=== PATIENT | female | born 1975 | race Caucasian/White ===

== ENCOUNTER 2017-05-13 13:03 | Inpatient (IN) | payer BC ==
[2017-05-13 15:39] LABS: WHITE BLOOD COUNT 4.5 10^3/ul (4.8-10.8)
[2017-05-13 15:39] LABS: ABNORMAL IP MESSAGE 1; MEAN CORPUSCULAR HEMOGLOBIN 14.9 pg (29.0-33.0); MEAN CORPUSCULAR HGB CONC 24.1 g/dl (32.0-37.0); MEAN CORPUSCULAR VOLUME 61.8 fl (82.0-101.0); NUCLEATED RED BLOOD CELLS% 1.3 /100WBC (0.0-0.0); PLATELET COUNT 177 10^3/UL (140-415); RED BLOOD COUNT 2.75 10^6/ul (4.20-5.40); RED CELL DISTRIBUTION WIDTH 25.3 % (11.5-14.5)
[2017-05-13 15:47] LABS: INR 1.09; PROTIME 14.2 Sec (11.9-14.9); PT RATIO 1.1
[2017-05-13 15:48] LABS: PARTIAL THROMBOPLASTIN TIME 33.8 Sec (25.0-35.0)
[2017-05-13 15:51] LABS: ANION GAP 17 (8-16); BLOOD UREA NITROGEN 8 mg/dl (7-20); CARBON DIOXIDE 26 mmol/L (21-31); CHLORIDE 100 mmol/L (97-110); GLUCOSE 93 mg/dl (70-220); HEMOGLOBIN 4.1 g/dl (12.0-16.0); POSITIVE DIFF @See below; POTASSIUM 3.8 mmol/L (3.5-5.1); SODIUM 139 mmol/L (135-144)
[2017-05-13 15:52] LABS: ADD MAN DIFF? YES; PATH REVIEW? YES
[2017-05-13] MEDS ORDERED: SOD CHLORIDE 0.9% 250 ML IV (15:52)
[2017-05-13] MEDS ORDERED: ACETAMINOPHEN 325 MG TAB PO ×2 (16:00→17:00)
[2017-05-13] MEDS ORDERED: ONDANSETRON 4 MG INJ IV (16:00)
[2017-05-13 16:28] LABS: ANISOCYTOSIS 1+ (0-0); EOSINOPHILS % (M) 1 % (0-7); ERYTHROBLAST% (NRBC) (M) 2 % (0-0); GIANT THROMBO% (M) 1 % (0-0); HYPOCHROMASIA 3+ (0-0); LYMPHOCYTES #M 1.2 10^3/ul (0.8-2.9); LYMPHOCYTES % (M) 27 % (15-51); METAMYELOCYTES %M 1 % (0-0); MICROCYTOSIS 1+ (0-0); MONOCYTES % (M) 1 % (0-11); MYELOCYTES % (M) 1 % (0-0); PLATELET ESTIMATE NORMAL; POIKILOCYTOSIS 1+ (0-0); POLYCHROMASIA 1+ (0-0); SEGMENTED NEUTROPHILS (M) % 69 % (39-77); SMUDGE%M 1 % (0-0)
[2017-05-13] MEDS ORDERED: NACL 0.9% 3 ML SYG IV (17:00)
[2017-05-13] MEDS ORDERED: MAGNESIUM HYDROXIDE 30ML CUP PO (17:00)
[2017-05-13] MEDS ORDERED: DOCUSATE SODIUM 100 MG CAP PO (17:00)
[2017-05-13 17:44] LABS: ALBUMIN 4.2 g/dl (3.3-4.9)
[2017-05-13 17:57] LABS: TOTAL IRON BINDING CAPACITY 473 ug/dl (241-421)
[2017-05-13 17:58] LABS: IRON < 10 ug/dl (35-150)
[2017-05-13 20:30] LABS: FREE T3 1.67 pg/ml (2.77-5.27); FREE T4 (FREE THYROXINE) 0.33 ng/dl (0.64-1.79)
[2017-05-14 07:06] LABS: ADD UMIC NO; UR ASCORBIC ACID 40 mg/dL (NEGATIVE); UR BILIRUBIN (Dip) NEGATIVE (NEGATIVE); UR BLOOD (Dip) NEGATIVE (NEGATIVE); UR CLARITY CLEAR (CLEAR); UR COLOR YELLOW (YELLOW); UR GLUCOSE (Dip) NEGATIVE (NEGATIVE); UR KETONES (Dip) NEGATIVE (NEGATIVE); UR LEUKOCYTE ESTERASE (Dip) NEGATIVE Leu/ul (NEGATIVE); UR NITRITE (Dip) NEGATIVE (NEGATIVE); UR SPECIFIC GRAVITY (Dip) 1.026 (1.003-1.030); UR TOTAL PROTEIN (Dip) NEGATIVE (NEGATIVE); UR UROBILINOGEN (Dip) 1+ mg/dL (NEGATIVE)
[2017-05-14 09:17] LABS: ABNORMAL IP MESSAGE 1; HEMATOCRIT 24.1 % (37.0-47.0); MEAN CORPUSCULAR HGB CONC 28.2 g/dl (32.0-37.0); MEAN CORPUSCULAR VOLUME 70.9 fl (82.0-101.0); NUCLEATED RED BLOOD CELLS% 1.9 /100WBC (0.0-0.0); PLATELET COUNT 165 10^3/UL (140-415); RED CELL DISTRIBUTION WIDTH 30.2 % (11.5-14.5)
[2017-05-14 09:17] LABS: WHITE BLOOD COUNT 5.2 10^3/ul (4.8-10.8)
[2017-05-14 09:21] LABS: POSITIVE DIFF @See below
[2017-05-14 09:24] LABS: ADD MAN DIFF? YES; HEMOGLOBIN 6.8 g/dl (12.0-16.0)
[2017-05-14] MEDS ORDERED: SOD CHLORIDE 0.9% 250 ML IV* (10:01)
[2017-05-14 10:22] LABS: ANISOCYTOSIS 3+ (0-0); BAND NEUTROPHILS #M 0.2 10^3/ul (0.0-0.6); BAND NEUTROPHILS % (M) 4 % (0-4); BASOPHILS % (M) 1 % (0-2); EOSINOPHILS % (M) 4 % (0-7); ERYTHROBLAST% (NRBC) (M) 1 % (0-0); HYPOCHROMASIA 3+ (0-0); LYMPHOCYTES #M 1.5 10^3/ul (0.8-2.9); LYMPHOCYTES % (M) 29 % (15-51); MICROCYTOSIS 3+ (0-0); MONOCYTE #M 0.1 10^3/ul (0.3-0.9); MONOCYTES % (M) 2 % (0-11); PLATELET ESTIMATE NORMAL; POIKILOCYTOSIS 3+ (0-0); POLYCHROMASIA 2+ (0-0); SEG NEUT #M 3.1 10^3/ul (1.7-7.5); SEGMENTED NEUTROPHILS (M) % 60 % (39-77)
[2017-05-14] MEDS: FERROUS SULFATE (EC) 325 MG TAB PO ×2 (12:25→21:05)
[2017-05-14] MEDS: DOCUSATE SODIUM 100 MG CAP PO (12:25)
[2017-05-14] MEDS: LEVOTHYROXINE 125 MCG TAB PO (15:21)
[2017-05-14 20:19] LABS: ADD MAN DIFF? NO
[2017-05-14 20:24] LABS: ABNORMAL IP MESSAGE 1; BASOPHILS % 0.6 % (0.0-2.0); EOSINOPHILS # 0.1 10^3/ul (0.0-0.5); HEMATOCRIT 27.3 % (37.0-47.0); HEMOGLOBIN 7.8 g/dl (12.0-16.0); LYMPHOCYTES # 1.8 10^3/ul (0.8-2.9); LYMPHOCYTES % 28.7 % (15.0-51.0); MEAN CORPUSCULAR HEMOGLOBIN 20.5 pg (29.0-33.0); MEAN CORPUSCULAR HGB CONC 28.6 g/dl (32.0-37.0); MEAN CORPUSCULAR VOLUME 71.8 fl (82.0-101.0); MONOCYTE # 0.3 10^3/ul (0.3-0.9); MONOCYTES % 3.9 % (0.0-11.0); NEUTROPHIL # 3.9 10^3/ul (1.6-7.5); NEUTROPHILS % 61.2 % (39.0-77.0); NUCLEATED RED BLOOD CELLS # 0.2 10^3/ul (0.0-0.0); NUCLEATED RED BLOOD CELLS% 2.7 /100WBC (0.0-0.0); PLATELET COUNT 185 10^3/UL (140-415); RED CELL DISTRIBUTION WIDTH 29.6 % (11.5-14.5)
[2017-05-14 20:24] LABS: WHITE BLOOD COUNT 6.4 10^3/ul (4.8-10.8)
[2017-05-14 20:27] LABS: POSITIVE DIFF @See below
[2017-05-14 22:36] LABS: IMMEDIATE SPIN CROSSMATCH 1
[2017-05-15] MEDS: HYDROCODONE/APAP (5/325) TAB PO (02:30)
[2017-05-15 02:53] LABS: IMMEDIATE SPIN CROSSMATCH 1 5
[2017-05-15] MEDS: LEVOTHYROXINE 125 MCG TAB PO (06:19)
[2017-05-15 08:54] LABS: ADD MAN DIFF? NO
[2017-05-15] MEDS: FERROUS SULFATE (EC) 325 MG TAB PO ×3 (09:00→21:06)
[2017-05-15] MEDS: DOCUSATE SODIUM 100 MG CAP PO (09:00)
[2017-05-15 09:05] LABS: WHITE BLOOD COUNT 7.2 10^3/ul (4.8-10.8)
[2017-05-15 09:05] LABS: ABNORMAL IP MESSAGE 1; BASOPHIL # 0.1 10^3/ul (0.0-0.1); BASOPHILS % 1.1 % (0.0-2.0); EOSINOPHILS # 0.2 10^3/ul (0.0-0.5); EOSINOPHILS % 2.5 % (0.0-7.0); HEMATOCRIT 29.5 % (37.0-47.0); HEMOGLOBIN 8.6 g/dl (12.0-16.0); LYMPHOCYTES # 2.1 10^3/ul (0.8-2.9); LYMPHOCYTES % 29.6 % (15.0-51.0); MEAN CORPUSCULAR HEMOGLOBIN 21.4 pg (29.0-33.0); MEAN CORPUSCULAR HGB CONC 29.2 g/dl (32.0-37.0); MEAN CORPUSCULAR VOLUME 73.6 fl (82.0-101.0); MONOCYTE # 0.3 10^3/ul (0.3-0.9); MONOCYTES % 4.3 % (0.0-11.0); NEUTROPHIL # 4.2 10^3/ul (1.6-7.5); NEUTROPHILS % 58.4 % (39.0-77.0); NUCLEATED RED BLOOD CELLS # 0.2 10^3/ul (0.0-0.0); NUCLEATED RED BLOOD CELLS% 2.8 /100WBC (0.0-0.0); PLATELET COUNT 173 10^3/UL (140-415); RED BLOOD COUNT 4.01 10^6/ul (4.20-5.40); RED CELL DISTRIBUTION WIDTH 29.9 % (11.5-14.5)
[2017-05-15] MEDS ORDERED: NEOSTIGMINE 3 MG/3 ML SYRINGE (11:27)
[2017-05-15] MEDS ORDERED: GLYCOPYRROLATE 0.4 MG INJ (11:27)
[2017-05-15] MEDS ORDERED: CEFAZOLIN 1 GM INJ (11:27)
[2017-05-15] MEDS ORDERED: ROCURONIUM 50 MG INJ (11:27)
[2017-05-15] MEDS ORDERED: PROPOFOL 20 ML (11:27)
[2017-05-15] MEDS ORDERED: FENTAnyl 50 MCG/ML VIAL (11:29)
[2017-05-15] MEDS ORDERED: DEXAMETHASONE 4 MG/ML 1 ML INJ (11:29)
[2017-05-15] MEDS ORDERED: ONDANSETRON 4 MG INJ (11:29)
[2017-05-15] MEDS ORDERED: MIDAZOLAM 1 MG/ML 2 ML INJ (11:29)
[2017-05-15] MEDS ORDERED: ONDANSETRON 4 MG INJ IV (12:00)
[2017-05-15] MEDS ORDERED: LABETALOL HCL 20MG INJ IV (12:00)
[2017-05-15] MEDS ORDERED: HYDROmorphONE (0.2 MG/ML) 10ML SYG IV ×2 (12:00)
[2017-05-15] MEDS ORDERED: OXYCODONE/ACETAMINOPHEN (5/325) TAB PO ×2 (12:00)
[2017-05-15] MEDS ORDERED: FENTAnyl 50 MCG/ML VIAL IV ×3 (12:00)
[2017-05-15] MEDS ORDERED: TRIMETHOBENZAMIDE 100 MG/ML VIAL IM (12:00)
[2017-05-15] MEDS ORDERED: ALBUTEROL 0.083% (NEB) 2.5 MG/3 ML AMP HHN (12:00)
[2017-05-15] MEDS ORDERED: MEPERIDINE 25 MG INJ IV (12:00)
[2017-05-15] MEDS ORDERED: MIDAZOLAM 1 MG/ML 2 ML INJ IV (12:00)
[2017-05-15] MEDS ORDERED: hydrALAzine 20 MG INJ IV (12:00)
[2017-05-15] MEDS ORDERED: DIPHENHYDRAMINE 50 MG INJ IV (12:00)
[2017-05-15] MEDS ORDERED: EPHEDrine SULFATE 50 MG/5 ML SYG IV (12:00)
[2017-05-15] MEDS ORDERED: IPRATROPIUM (NEB) 0.5 MG/2.5 ML AMP HHN (12:00)
[2017-05-15] MEDS ORDERED: SUGAMMADEX SODIUM 200 MG/2 ML VIAL IV (12:49)
[2017-05-15] MEDS: HYDROmorphONE (0.2 MG/ML) 10ML SYG IV ×2 (13:09→13:33)
[2017-05-16 05:07] LABS: ADD MAN DIFF? NO
[2017-05-16 05:10] LABS: WHITE BLOOD COUNT 11.4 10^3/ul (4.8-10.8)
[2017-05-16 05:10] LABS: ABNORMAL IP MESSAGE 1; BASOPHIL # 0.1 10^3/ul (0.0-0.1); BASOPHILS % 0.4 % (0.0-2.0); EOSINOPHILS % 0.1 % (0.0-7.0); HEMATOCRIT 29.2 % (37.0-47.0); HEMOGLOBIN 8.5 g/dl (12.0-16.0); LYMPHOCYTES # 1.8 10^3/ul (0.8-2.9); LYMPHOCYTES % 15.5 % (15.0-51.0); MEAN CORPUSCULAR HEMOGLOBIN 21.6 pg (29.0-33.0); MEAN CORPUSCULAR HGB CONC 29.1 g/dl (32.0-37.0); MEAN CORPUSCULAR VOLUME 74.1 fl (82.0-101.0); MONOCYTE # 0.4 10^3/ul (0.3-0.9); MONOCYTES % 3.2 % (0.0-11.0); NEUTROPHIL # 8.9 10^3/ul (1.6-7.5); NEUTROPHILS % 78.3 % (39.0-77.0); NUCLEATED RED BLOOD CELLS # 0.2 10^3/ul (0.0-0.0); NUCLEATED RED BLOOD CELLS% 1.8 /100WBC (0.0-0.0); PLATELET COUNT 206 10^3/UL (140-415); RED BLOOD COUNT 3.94 10^6/ul (4.20-5.40)
[2017-05-16 05:29] LABS: POSITIVE DIFF @See below; RED CELL DISTRIBUTION WIDTH 30.7 % (11.5-14.5)
[2017-05-16] MEDS: LEVOTHYROXINE 125 MCG TAB PO (06:14)
[2017-05-16] MEDS: DOCUSATE SODIUM 100 MG CAP PO (09:41)
[2017-05-16] MEDS: FERROUS SULFATE (EC) 325 MG TAB PO (09:41)
== END 2017-05-16 11:13 | disposition home or self-care (01) | DRG 742 ==
LOC: E/R 13:03 → PP2 16:00
PROC: 0U5B8ZZ Destruction of Endometrium, Via Natural or Artificial Opening Endoscopic (ICD-10-PCS; principal; 2017-05-15 11:37)
PROC: 0UDB8ZZ Extraction of Endometrium, Via Natural or Artificial Opening Endoscopic (ICD-10-PCS; 2017-05-15 11:37)
PROC: 30233K1 Transfusion of Nonautologous Frozen Plasma into Peripheral Vein, Percutaneous Approach (ICD-10-PCS; 2017-05-15 11:37)
PROC: 30233N1 Transfusion of Nonautologous Red Blood Cells into Peripheral Vein, Percutaneous Approach (ICD-10-PCS; 2017-05-15 11:37)
DX: N92.0 Excessive and frequent menstruation with regular cycle (principal); D62 Acute posthemorrhagic anemia; D50.8 Other iron deficiency anemias; J02.9 Acute pharyngitis, unspecified; M79.89 Other specified soft tissue disorders; E89.0 Postprocedural hypothyroidism
CPT/HCPCS: 36415; 36430; 76830; 76856; 80048; 81003; 82040; 83540; 84439; 84443; 84481; 85025; 85610; 85730; 86850; 86900; 86901; 86920; 87430; 87880; 88305; 99285-25

== ENCOUNTER 2018-12-13 12:12 | Inpatient (IN) | payer BC ==
[2018-12-13] MEDS: SOD CHLORIDE 0.9% 0 ML IV (02:00)
[2018-12-13 14:17] LABS: WHITE BLOOD COUNT 6.2 10^3/ul (4.8-10.8)
[2018-12-13 14:17] LABS: ABNORMAL IP MESSAGE 1; HEMATOCRIT 18.6 % (37.0-47.0); MEAN CORPUSCULAR HEMOGLOBIN 14.5 pg (29.0-33.0); MEAN CORPUSCULAR HGB CONC 23.7 g/dl (32.0-37.0); MEAN CORPUSCULAR VOLUME 61.2 fl (82.0-101.0); NUCLEATED RED BLOOD CELLS% 1.1 /100WBC (0.0-0.0); PLATELET COUNT 208 10^3/UL (140-415); RED BLOOD COUNT 3.04 10^6/ul (4.20-5.40)
[2018-12-13 14:30] LABS: HEMOGLOBIN 4.4 g/dl (12.0-16.0)
[2018-12-13 14:31] LABS: ADD MAN DIFF? YES; POSITIVE DIFF @See below
[2018-12-13 14:32] LABS: PATH REVIEW? YES
[2018-12-13 14:33] LABS: ALANINE AMINOTRANSFERASE 16 IU/L (13-69); ALBUMIN 4.5 g/dl (3.3-4.9); ALBUMIN/GLOBULIN RATIO 1.21; ALKALINE PHOSPHATASE 60 IU/L (42-121); ANION GAP 9 (5-13); ASPARTATE AMINO TRANSFERASE 16 IU/L (15-46); BILIRUBIN,INDIRECT 0.5 mg/dl (0-1.1); BILIRUBIN,TOTAL 0.5 mg/dl (0.2-1.3); BLOOD UREA NITROGEN 8 mg/dl (7-20); CALCIUM 8.8 mg/dl (8.4-10.2); CARBON DIOXIDE 28 mmol/L (21-31); CHLORIDE 101 mmol/L (97-110); CREATININE 0.66 mg/dl (0.44-1.00); Estimated GFR > 60 mL/min (>60); GLUCOSE 101 mg/dl (70-220); POTASSIUM 3.8 mmol/L (3.5-5.1); SODIUM 138 mmol/L (135-144); TOTAL PROTEIN 8.2 g/dl (6.1-8.1)
[2018-12-13 14:41] LABS: INR 1.11; PROTIME 14.4 Sec (11.9-14.9); PT RATIO 1.1
[2018-12-13 14:42] LABS: PARTIAL THROMBOPLASTIN TIME 33.9 Sec (23.0-35.0)
[2018-12-13 14:45] LABS: TROPONIN-I < 0.012 ng/ml (0.000-0.120)
[2018-12-13] MEDS ORDERED: ACETAMINOPHEN 325 MG TAB PO ×2 (15:00→15:30)
[2018-12-13] MEDS ORDERED: ONDANSETRON 4 MG INJ IV ×2 (15:00→15:30)
[2018-12-13] MEDS ORDERED: MAGNESIUM HYDROXIDE 30ML CUP PO (15:30)
[2018-12-13] MEDS ORDERED: NACL 0.9% 3 ML SYG IV (15:30)
[2018-12-13] MEDS ORDERED: morphine 2 MG INJ IV (15:30)
[2018-12-13 15:58] LABS: % IRON SATURATION 5 % SAT (22-52); IRON 26 ug/dl (35-150); TOTAL IRON BINDING CAPACITY 556 ug/dl (241-421)
[2018-12-13 16:22] LABS: ANISOCYTOSIS 3+ (0-0); BASOPHILS % (M) 1 % (0-2); EOSINOPHILS % (M) 3 % (0-7); ERYTHROBLAST% (NRBC) (M) 2 % (0-0); GIANT THROMBO% (M) 5 % (0-0); HYPOCHROMASIA 3+ (0-0); LYMPHOCYTES #M 0.7 10^3/ul (0.8-2.9); LYMPHOCYTES % (M) 12 % (15-51); MICROCYTOSIS 3+ (0-0); MONOCYTE #M 0.1 10^3/ul (0.3-0.9); MONOCYTES % (M) 2 % (0-11); OVALOCYTES 2+ (0-0); PLATELET ESTIMATE NORMAL; POIKILOCYTOSIS 3+ (0-0); POLYCHROMASIA 2+ (0-0); SCHISTOCYTES 1+ (0-0); SEGMENTED NEUTROPHILS (M) % 82 % (39-77); SMUDGE%M 4 % (0-0); TEAR DROP CELLS 1+ (0-0)
[2018-12-13 21:33] LABS: IMMEDIATE SPIN CROSSMATCH 1 4
[2018-12-14] MEDS: PANTOPRAZOLE (EC) 40 MG TAB PO (05:37)
[2018-12-14] MEDS: LEVOTHYROXINE 125 MCG TAB PO (05:37)
[2018-12-14 08:22] LABS: ADD MAN DIFF? NO
[2018-12-14 08:31] LABS: ABNORMAL IP MESSAGE 1; BASOPHIL # 0.1 10^3/ul (0.0-0.1); BASOPHILS % 0.7 % (0.0-2.0); EOSINOPHILS # 0.2 10^3/ul (0.0-0.5); HEMATOCRIT 28.9 % (37.0-47.0); HEMOGLOBIN 8.2 g/dl (12.0-16.0); LYMPHOCYTES # 1.5 10^3/ul (0.8-2.9); LYMPHOCYTES % 20.2 % (15.0-51.0); MEAN CORPUSCULAR HEMOGLOBIN 19.7 pg (29.0-33.0); MEAN CORPUSCULAR HGB CONC 28.4 g/dl (32.0-37.0); MEAN CORPUSCULAR VOLUME 69.5 fl (82.0-101.0); MONOCYTE # 0.3 10^3/ul (0.3-0.9); MONOCYTES % 3.9 % (0.0-11.0); NEUTROPHIL # 5.4 10^3/ul (1.6-7.5); NEUTROPHILS % 72.7 % (39.0-77.0); NUCLEATED RED BLOOD CELLS # 0.1 10^3/ul (0.0-0.0); NUCLEATED RED BLOOD CELLS% 1.4 /100WBC (0.0-0.0); PLATELET COUNT 200 10^3/UL (140-415); RED BLOOD COUNT 4.16 10^6/ul (4.20-5.40); RED CELL DISTRIBUTION WIDTH 29.8 % (11.5-14.5)
[2018-12-14 08:31] LABS: WHITE BLOOD COUNT 7.4 10^3/ul (4.8-10.8)
[2018-12-14 08:34] LABS: POSITIVE DIFF @See below
[2018-12-14 09:00] LABS: ALANINE AMINOTRANSFERASE 13 IU/L (13-69); ALBUMIN 4.5 g/dl (3.3-4.9); ALBUMIN/GLOBULIN RATIO 1.21; ALKALINE PHOSPHATASE 64 IU/L (42-121); ANION GAP 10 (5-13); ASPARTATE AMINO TRANSFERASE 31 IU/L (15-46); BILIRUBIN,INDIRECT 1.4 mg/dl (0-1.1); BILIRUBIN,TOTAL 1.4 mg/dl (0.2-1.3); BLOOD UREA NITROGEN 7 mg/dl (7-20); CALCIUM 8.9 mg/dl (8.4-10.2); CARBON DIOXIDE 26 mmol/L (21-31); CHLORIDE 101 mmol/L (97-110); CREATININE 0.67 mg/dl (0.44-1.00); Estimated GFR > 60 mL/min (>60); GLUCOSE 89 mg/dl (70-220); MAGNESIUM 2.1 mg/dl (1.7-2.5); POTASSIUM 4.4 mmol/L (3.5-5.1); SODIUM 137 mmol/L (135-144); TOTAL PROTEIN 8.2 g/dl (6.1-8.1)
[2018-12-14 09:01] LABS: CHOL/HDL RATIO 3.1 RATIO; CHOLESTEROL 153 mg/dl (100-200); HDL CHOLESTEROL 48 mg/dl (34-88); LDL CHOLESTEROL,CALCULATED 86 mg/dl; TRIGLYCERIDES 95 mg/dl (0-149)
[2018-12-14 09:04] LABS: HEMOGLOBIN A1C 5.2 % (0-5.9)
[2018-12-14 09:32] LABS: FREE THYROXINE INDEX (Calc) 1.12 ug/ml (0.65-3.89); T3 UPTAKE 25.4 % (23.5-40.5); T4 (THYROXINE) 4.4 ug/dl (5.5-11.0)
[2018-12-14] MEDS: SOD FERRIC GLUC COMPLX 125 MG in SOD CHLORIDE 0.9% 100 ML IVPB (14:54)
[2018-12-14] MEDS: HYDROCODONE/APAP (5/325) TAB PO (23:21)
[2018-12-15] MEDS: PANTOPRAZOLE (EC) 40 MG TAB PO (06:14)
[2018-12-15] MEDS: LEVOTHYROXINE 125 MCG TAB PO (06:14)
[2018-12-15 08:21] LABS: ADD MAN DIFF? NO
[2018-12-15 08:25] LABS: WHITE BLOOD COUNT 6.5 10^3/ul (4.8-10.8)
[2018-12-15 08:25] LABS: ABNORMAL IP MESSAGE 1; BASOPHIL # 0.1 10^3/ul (0.0-0.1); BASOPHILS % 0.9 % (0.0-2.0); EOSINOPHILS # 0.2 10^3/ul (0.0-0.5); EOSINOPHILS % 2.5 % (0.0-7.0); HEMATOCRIT 30.1 % (37.0-47.0); HEMOGLOBIN 8.2 g/dl (12.0-16.0); LYMPHOCYTES # 1.4 10^3/ul (0.8-2.9); LYMPHOCYTES % 21.3 % (15.0-51.0); MEAN CORPUSCULAR HEMOGLOBIN 19.6 pg (29.0-33.0); MEAN CORPUSCULAR HGB CONC 27.2 g/dl (32.0-37.0); MONOCYTE # 0.4 10^3/ul (0.3-0.9); MONOCYTES % 5.4 % (0.0-11.0); NEUTROPHIL # 4.5 10^3/ul (1.6-7.5); NEUTROPHILS % 68.8 % (39.0-77.0); NUCLEATED RED BLOOD CELLS # 0.2 10^3/ul (0.0-0.0); NUCLEATED RED BLOOD CELLS% 2.6 /100WBC (0.0-0.0); PLATELET COUNT 206 10^3/UL (140-415); RED BLOOD COUNT 4.18 10^6/ul (4.20-5.40); RED CELL DISTRIBUTION WIDTH 30.7 % (11.5-14.5)
[2018-12-15 08:28] LABS: POSITIVE DIFF @See below
[2018-12-15 09:01] LABS: ANION GAP 8 (5-13); BLOOD UREA NITROGEN 9 mg/dl (7-20); CARBON DIOXIDE 30 mmol/L (21-31); CHLORIDE 99 mmol/L (97-110); CREATININE 0.73 mg/dl (0.44-1.00); Estimated GFR > 60 mL/min (>60); GLUCOSE 89 mg/dl (70-220); SODIUM 137 mmol/L (135-144)
[2018-12-15] MEDS: SOD FERRIC GLUC COMPLX 125 MG in SOD CHLORIDE 0.9% 100 ML IVPB (12:48)
[2018-12-16] MEDS: PANTOPRAZOLE (EC) 40 MG TAB PO (06:09)
[2018-12-16] MEDS: LEVOTHYROXINE 125 MCG TAB PO (06:09)
== END 2018-12-16 14:25 | disposition home or self-care (01) | DRG 812 ==
LOC: TEL 14:48 → E/R 12:12
PROC: 30233N1 Transfusion of Nonautologous Red Blood Cells into Peripheral Vein, Percutaneous Approach (ICD-10-PCS; principal; 2018-12-13)
DX: D50.0 Iron deficiency anemia secondary to blood loss (chronic) (principal); Z68.41 Body mass index [BMI] 40.0-44.9, adult; N93.9 Abnormal uterine and vaginal bleeding, unspecified; D25.9 Leiomyoma of uterus, unspecified; E66.9 Obesity, unspecified; E03.9 Hypothyroidism, unspecified; N80.0 Endometriosis of uterus; R06.02 Shortness of breath
CPT/HCPCS: 36415; 36430; 72196; 74176; 76856; 80048; 80053; 80061; 81025; 83036; 83540; 83735; 84100; 84436; 84443; 84479; 84484; 85025; 85610; 85730; 86850; 86900; 86901; 86920; 93005; 99285-25